=== PATIENT | female | born 1950 | race Caucasian/White ===

== ENCOUNTER 2024-12-02 13:10 | Emergency (ER) | payer MEDICARE ==
[2024-12-02] MEDS: methylPREDNISolone Sodium Succinate 125 MG/2 ML SDV IM ONE (14:59)
== END 2024-12-02 16:15 | disposition home or self-care (01) ==
LOC: JP.ED 13:10
DX: T78.1XXA Other adverse food reactions, not elsewhere classified, initial encounter (principal); Z88.2 Allergy status to sulfonamides
CPT/HCPCS: 96372; 99283; J2919